=== PATIENT | female | born 1950 ===

== ENCOUNTER 2017-11-25 10:18 | Day surgery (SDC) | payer MEDICARE ==
[2017-11-25] MEDS ORDERED: Lactated Ringer's 500 ML IV ONE (10:41)
[2017-11-25] MEDS ORDERED: Propofol 10 mg/ml Inj (20 ML) ONE (14:06)
[2017-11-25 14:28] VITALS: TEMP 96.8
[2017-11-25 14:50] VITALS: BP 119/59; PULSE 58; RESP 18; O2SAT 100
== END 2017-11-25 15:32 | disposition home or self-care (01) ==
LOC: H.ENDO 10:18
PROVIDERS: ATTEND Internal Medicine Gastroenterology
DX: R10.13 Epigastric pain (principal); I25.10 Atherosclerotic heart disease of native coronary artery without angina pectoris; E78.5 Hyperlipidemia, unspecified; I10 Essential (primary) hypertension; E66.9 Obesity, unspecified; K29.50 Unspecified chronic gastritis without bleeding; K31.89 Other diseases of stomach and duodenum
CPT/HCPCS: 43239; 82948; 88305; J2001; J2704; J7120

== ENCOUNTER 2017-12-09 08:03 | Day surgery (SDC) | payer MEDICARE ==
[2017-12-09] MEDS ORDERED: Lactated Ringer's 500 ML IV ONE (08:21)
[2017-12-09] MEDS ORDERED: Propofol 10 mg/ml Inj (20 ML) ONE (11:11)
[2017-12-09 11:34] VITALS: BP 96/59; PULSE 81; RESP 21; TEMP 97; O2SAT 97
== END 2017-12-09 11:57 | disposition home or self-care (01) ==
LOC: H.ENDO 08:03
PROVIDERS: ATTEND Internal Medicine Gastroenterology
DX: Z12.11 Encounter for screening for malignant neoplasm of colon (principal); K57.30 Diverticulosis of large intestine without perforation or abscess without bleeding; Z86.010 Personal history of colon polyps
CPT/HCPCS: 45378; J2001; J2704; J7120